=== PATIENT | male | born 1995 | race Caucasian/White ===

== ENCOUNTER 2016-10-03 11:30 | Emergency (ER) | payer BC, OTHER ==
[2016-10-03 13:00] VITALS: BP 109/36
--- NOTE | 2016-10-03 14:00 | UC ---
Skin Complaint HPI - HPI Summary HPI Summary: 21 yo male with rash with slight crusting x days... below nares No pain or itch - History of Current Complaint Chief Complaint: UCSkin Time Seen by Provider: 10/03/16 13:50 Stated Complaint: ORAL COMPLAINT Hx Obtained From: Patient Onset/Duration: Lasting Days Timing: Constant Onset Severity: Mild Current Severity: Mild Pain Intensity: 0 Pain Scale Used: 0-10 Numeric Location: Other - below nose Character: Redness Aggravating: Nothing Alleviating: Nothing Associated Signs & Symptoms: Positive: Negative - except rash, Rash - Allergy/Home Medications Allergies/Adverse Reactions: Allergies Allergy/AdvReac Type Severity Reaction Status Date / Time No Known Allergies Allergy Verified 10/03/16 13:00 Review of Systems Constitutional: Negative Skin: Rash Eyes: Negative ENT: Negative Respiratory: Negative Cardiovascular: Negative Gastrointestinal: Negative Genitourinary: Negative Motor: Negative Neurovascular: Negative Musculoskeletal: Negative Neurological: Negative Psychological: Negative All Other Systems Reviewed And Are Negative: Yes PMH/Surg Hx/FS Hx/Imm Hx Previously Healthy: Yes Endocrine History Of: Denies: Diabetes, Thyroid Disease, Hyperthyroidism, Hypothyroidism, Dyslipidemia Cardiovascular History Of: Denies: Cardiac Disorders Respiratory History Of: Denies: COPD, Asthma Psychological History Of: Denies: Anxiety, Depression - Surgical History Surgical History: None - Family History Known Family History: Positive: Hypertension - Social History Alcohol Use: None Substance Use Type: None Smoking Status (MU): Never Smoked Tobacco - Immunization History Vaccination Up to Date: No Physical Exam Triage Information Reviewed: Yes Appearance: Well-Appearing, No Pain Distress, Well-Nourished Vital Signs: Initial Vital Signs Temp 97.5 F 10/03/16 12:57 Pulse 60 10/03/16 12:57 Resp 14 10/03/16 12:57 BP 109/36 10/03/16 12:57 Pulse Ox 97 10/03/16 12:57 Vital Signs Reviewed: Yes Eyes: Positive: Conjunctiva Clear ENT: Negative: Nasal congestion, Nasal drainage, Tonsillar swelling, Tonsillar exudate, Muffled/hoarse voice Neck: Positive: Supple, Nontender Respiratory: Positive: Lungs clear, Normal breath sounds, No respiratory distress, No accessory muscle use Cardiovascular: Positive: RRR, No Murmur Musculoskeletal: Positive: ROM Intact, No Edema Neurological: Positive: Alert Psychological Exam: Normal Skin Exam: Other - see image Course/Dx - Diagnoses Provider Diagnoses: impetigo Discharge - Discharge Plan Condition: Stable Disposition: HOME Prescriptions: Mupirocin 2% OINT* [Bactroban 2 % Oint*] 1 applic TOPICAL TID #1 tube Patient Education Materials: Impetigo (ED) Referrals: Augustus FOY,Alberto [Primary Care Provider] - 1 Week (if not better) Images Head: 1 - red with crust
== END 2016-10-03 14:00 | disposition home or self-care (01) ==
LOC: UCCORT 11:30
DX: L01.00 Impetigo, unspecified (principal)
CPT/HCPCS: 99212; G0463

== ENCOUNTER 2018-03-19 12:53 | Emergency (ER) | payer BC ==
[2018-03-19 13:32] VITALS: BP 127/86
--- NOTE | 2018-03-19 13:35 | UC ---
Skin Complaint HPI - HPI Summary HPI Summary: 22 yo male presents with skin irritation to upper lip for the past 1-2 weeks. Stings when he sweats or gets it wet. Seems more irritated with shaving. He tells me that the exact same thing happened about a year ago and he was given bactroban ointment which resolved his skin irritation, but returned as soon as he stopped using it. Denies fever, chills, drainage, or bleeding. - History of Current Complaint Hx Obtained From: Patient Onset/Duration: Gradual Onset Pain Intensity: 0 <Chuy Recio - Last Filed: 03/19/18 13:52> <Anthony Sorto - Last Filed: 03/19/18 14:23> - History of Current Complaint Chief Complaint: UCSkin Time Seen by Provider: 03/19/18 13:35 Stated Complaint: SKIN COMPLAINT LIP - Allergy/Home Medications Allergies/Adverse Reactions: Allergies Allergy/AdvReac Type Severity Reaction Status Date / Time No Known Allergies Allergy Verified 10/03/16 13:00 Review of Systems Constitutional: Negative Skin: Rash Eyes: Negative ENT: Negative Respiratory: Negative Cardiovascular: Negative Gastrointestinal: Negative Neurological: Negative Psychological: Negative All Other Systems Reviewed And Are Negative: Yes <Chuy Recio - Last Filed: 03/19/18 13:52> PMH/Surg Hx/FS Hx/Imm Hx - Additional Past Medical History Additional PMH: None Previously Healthy: Yes - Surgical History Surgical History: Yes Surgery Procedure, Year, and Place: acl sx left knee--2017 - Family History Known Family History: Positive: Hypertension - Social History Alcohol Use: Weekly Substance Use Type: None Smoking Status (MU): Never Smoked Tobacco - Immunization History Vaccination Up to Date: No <Chuy Recio - Last Filed: 03/19/18 13:52> Physical Exam - Summary Physical Exam Summary: GENERAL: NAD. WDWN. No pain distress. SKIN: Upper lip: moderate erythema and scattered pustules. No streaking, bleeding, or drainage. NECK: Supple. Nontender. No lymphadenopathy. CHEST: No accessory muscle use. Breathing comfortably and in no distress. CV: RRR. Without m/r/g. NEURO: Alert. CN II-XII grossly intact. PSYCH: Age appropriate behavior. Triage Information Reviewed: Yes Vital Signs: Initial Vital Signs Temp 97.8 F 03/19/18 13:28 Pulse 67 03/19/18 13:28 Resp 15 03/19/18 13:28 BP 127/86 03/19/18 13:28 Pulse Ox 98 03/19/18 13:28 <Chuy Recio - Last Filed: 03/19/18 13:52> Vital Signs: Initial Vital Signs Temp 97.8 F 03/19/18 13:28 Pulse 67 03/19/18 13:28 Resp 15 03/19/18 13:28 BP 127/86 03/19/18 13:28 Pulse Ox 98 03/19/18 13:28 <Anthony Sorto - Last Filed: 03/19/18 14:23> Course/Dx - Course Course Of Treatment: Folliculitis. Advised to try a higher quality razor when shaving and to use shaving cream/foam every time. Will try clindamycin gel as well. - Diagnoses Provider Diagnoses: Folliculitis <Chuy Recio - Last Filed: 03/19/18 13:52> Discharge - Sign-Out/Discharge Documenting (check all that apply): Discharge/Admit/Transfer - Billing Disposition and Condition Condition: STABLE Disposition: Home <Chuy Recio - Last Filed: 03/19/18 13:52> - Billing Disposition and Condition Condition: STABLE Disposition: Home <Anthony Sorto - Last Filed: 03/19/18 14:23> - Discharge Plan Condition: Stable Disposition: HOME Prescriptions: Clindamycin 1% TOPICAL(NF) [Cleocin-T 1% TOPICAL(NF)] 1 % TOPICAL BID #1 tube Referrals: No Primary Care Phys,NOPCP [Primary Care Provider] - Additional Instructions: If you develop a fever, shortness of breath, chest pain, new or worsening symptoms - please call your PCP or go to the ED. Per institutional requirements, I have reviewed the chart, however, I was not consulted specifically or made aware of this patient by the above midlevel provider. I did not personally evaluate, interact with , or disposition this patient.
== END 2018-03-19 13:58 | disposition home or self-care (01) ==
LOC: UCCORT 12:53
DX: L73.9 Follicular disorder, unspecified (principal)
CPT/HCPCS: 99212; G0463